=== PATIENT | male | born 1945 | race Caucasian/White ===

== ENCOUNTER 2016-08-17 09:31 | Emergency (ER) | payer MEDICARE, OTHER ==
[~2016-08-17] VITALS: Ht 180.3 cm; Wt 88.7 kg
[2016-08-17 09:42] VITALS: BP 102/71; PULSE 96; RESP 16; TEMP 97.6; O2SAT 96
[2016-08-17] MEDS ORDERED: NEXI40CA PO (10:16)
[2016-08-17] MEDS ORDERED: [UNRECOGNIZED DRUG - REMARK] PO (10:16)
[2016-08-17] MEDS ORDERED: XARE20TA PO (10:16)
[2016-08-17] MEDS ORDERED: BACT800T5 PO (10:44)
[2016-08-17] MEDS ORDERED: CEPH-460 PO (10:44)
--- NOTE | 2016-08-17 10:44 | PD ---
HPI Chief Complaint: Skin Problem Time Seen by Provider: 10:24 Travel History International Travel<30 days: No Contact w/Intl Traveler<30days: No Traveled to known affect area: No History of Present Illness HPI 71-year-old male here for evaluation of possible infection on his left forearm. The patient first noticed the area of erythema on his left proximal/medial/ posterior forearm 2 days ago. He applied a warm compress last night and reports that the area seems somewhat improved today. He denies fevers or chills. No lacerations or injuries. He does report that the day prior he was fishing and got a fishhook one of the fingers of his right hand. He cannot remember which finger was, and states that none of his fingers in his right hand are bothering him. [facility] Social History Alcohol Use: Yes (occasional) Tobacco Use: No Allergies-Medications (Allergen,Severity, Reaction): Coded Allergies: No Known Allergies (Unverified , 08/17/16) Reported Meds & Prescriptions Reported Meds & Active Scripts Active Keflex (Cephalexin) 500 Mg Cap 500 Mg PO Q6H 10 Days Bactrim DS (Sulfamethoxazole-Trimethoprim) 800-160 Mg Tab 1 Tab PO BID Reported [unknown beta candice] 1 Tab PO DAILY Nexium (Esomeprazole DR) 40 Mg Capdr 40 Mg PO DAILY Xarelto (Rivaroxaban) 20 Mg Tab 20 Mg PO DAILY Review of Systems Except as stated in HPI: all other systems reviewed are Neg Physical Exam Narrative GENERAL: Well-developed, well-nourished, comfortable, no acute distress. SKIN: Warm and dry. Left proximal/medial/posterior forearm with a 3 cm x 3 cm circular area of erythema and warmth, no red streaks, no induration, no fluctuance. This area was evaluated using linear ultrasound probe at the bedside by me and it shows cobblestoning which is consistent with cellulitis, no drainable fluid collection. CARDIOVASCULAR: Bilateral distal radial pulses are brisk and equal. Regular rate and rhythm. MUSCULOSKELETAL: Skin exam as above. No obvious deformities. No clubbing. No cyanosis. No edema. NEUROLOGICAL: Awake and alert. No obvious cranial nerve deficits. Motor grossly within normal limits. Normal speech. PSYCHIATRIC: Appropriate mood and affect; insight and judgment normal. Data Data Last Documented VS Vital Signs Date Time Temp Pulse Resp B/P Pulse Ox O2 Delivery O2 Flow Rate FiO2 3/5/17 09:42 97.6 96 16 102/71 96 MDM Medical Decision Making Medical Screen Exam Complete: Yes Emergency Medical Condition: Yes Differential Diagnosis Cellulitis, abscess Narrative Course Vital signs show heart rate 96, blood pressure 1 /71, pulse ox 96% on room air , oral temp of 97.6F This is a 71-year-old male who is here for evaluation of an area of cellulitis of his left forearm. There is no fluctuance or induration. Bedside ultrasound performed by me using a linear probe shows cobblestoning which is consistent with cellulitis, no drainable fluid collection. No signs of lymphangitis on exam. He is overall well-appearing. At this point I believe he is stable for discharge home with oral antibiotics and treatment as an outpatient. He was informed on when to return to the emergency department. He is from [place] and is returning home in about 1 week. He was instructed to follow-up with his primary care physician when he returns home. Diagnosis Primary Impression: Cellulitis of forearm, left Referrals: Primary Care Physician 3 days Additional Instructions: Take antibiotics as prescribed. Follow-up with your primary care physician when you return to [place]. Return to the emergency department for worsening symptoms or any other concerns as discussed. Scripts Cephalexin (Keflex)500 Mg [id number] Mg PO Q6H 10 Days Ref 0 Prov:Joaquin Yadav MD 08/17/16 Sulfamethoxazole-Trimethoprim (Bactrim DS)800-160 Mg Tab1 Tab PO BID #20 TAB Ref 0 Prov:Joaquin Yadav MD 08/17/16 Disposition: 01 DISCHARGE HOME Condition: Stable Joaquin Yadav MD Aug 17, 2016 10:44
== END 2016-08-17 10:52 | disposition home or self-care (01) ==
LOC: PHED 09:31
DX: L03.114 Cellulitis of left upper limb (principal)
CPT/HCPCS: 99282